=== PATIENT | female | born 1990 | race Native Hawaiian/Other Pacific Islander ===

== ENCOUNTER 2016-10-13 21:20 | Emergency (ER) | payer SELFPAY ==
[2016-10-13 21:51] LABS: Basophils % (Auto) 0.5 % (0.0-1.8); Eosinophils % (Auto) 1.5 % (0.0-4.3); Hematocrit 35.3 % (30.3-42.9); Hemoglobin 12.2 gm/dl (10.1-14.3); Mean Corpuscular HGB Conc 35 % (30-34); Mean Corpuscular Hemoglobin 30 pg (28-32); Mean Corpuscular Volume 88 fl (79-97); Platelet Count 271 K/mm3 (140-440); Red Blood Count 4.03 M/mm3 (3.65-5.03); Red Cell Distribution Width 12.6 % (13.2-15.2); White Blood Count 8.3 K/mm3 (4.5-11.0)
[2016-10-13 22:09] LABS: Alanine Aminotransferase 7 units/L (7-56); Albumin 4.2 g/dL (3.9-5); Albumin/Globulin Ratio 1.4 %; Alkaline Phosphatase 82 units/L (35-129); Anion Gap 16 mmol/L; Blood Urea Nitrogen 13 mg/dL (7-17); Calcium 9.1 mg/dL (8.4-10.2); Carbon Dioxide 26 mmol/L (22-30); Chloride 101.8 mmol/L (98-107); Glucose 96 mg/dL (65-100); Lipase 25 units/L (13-60); Potassium 3.4 mmol/L (3.6-5.0); Sodium 140 mmol/L (137-145); Total Protein 7.3 g/dL (6.3-8.2)
[2016-10-13 22:32] LABS: Bilirubin,Urine NEG (Negative); Blood,Urine MOD (Negative); Ketones,Urine NEG (Negative); Leukocyte Esterase,Urine LG (Negative); Mucus,Urine FEW /HPF; Nitrite,Urine NEG (Negative); Protein,Urine <15 mg/dL mg/dL (Negative); Urobilinogen,Urine < 2.0 mg/dL (<2.0)
--- NOTE | 2016-10-14 09:26 | Emergency Department Report ---
ED Abdominal Pain HPI - General Chief Complaint: Abdominal Pain Stated Complaint: ABD PAIN/LOWER BACK PAIN Source: patient Mode of arrival: Ambulatory Limitations: No Limitations - History of Present Illness Initial Comments: 26 year old female presents to ED with lower bilateral abdominal pain and dysuria x2 days. patient is stable, neurologically intact and in no acute distress. patient denies N/V/D and fevers. patient states LMP was 2016. Complaint: abdominal pain -: Gradual Location: diffuse Radiation: suprapubic, L flank, R flank Migration to: suprapubic Severity: mild Severity scale (0 -10): 10 Quality: sharp Consistency: constant Improves With: nothing Worsens With: nothing Associated Symptoms: dysuria. denies: nausea, vomiting, diarrhea, fever, constipation, syncope - Related Data Previous Rx's Medication Instructions Recorded Last Taken Type Nitrofurantoin [place]/M-Cryst 100 mg PO Q12HR #14 capsule 10/14/16 Unknown Rx [Macrobid CAP] Phenazopyridine [Pyridium] 100 mg PO TID #9 tab 10/14/16 Unknown Rx metroNIDAZOLE [Flagyl] 500 mg PO Q8HR #21 tablet 10/14/16 Unknown Rx Allergies Allergy/AdvReac Type Severity Reaction Status Date / Time No Known Allergies Allergy Verified 10/13/16 21:28 ED Review of Systems ROS: Stated complaint: ABD PAIN/LOWER BACK PAIN Other details as noted in HPI Constitutional: denies: chills, fever Eyes: denies: eye pain, eye discharge, vision change ENT: denies: ear pain, throat pain Respiratory: denies: cough, shortness of breath, wheezing Cardiovascular: denies: chest pain, palpitations Endocrine: no symptoms reported Gastrointestinal: abdominal pain. denies: nausea, diarrhea Genitourinary: dysuria. denies: urgency, discharge Musculoskeletal: denies: back pain, joint swelling, arthralgia Skin: denies: rash, lesions Neurological: denies: headache, weakness, paresthesias Psychiatric: denies: anxiety, depression Hematological/Lymphatic: denies: easy bleeding, easy bruising ED Past Medical Hx - Past Medical History Previous Medical History?: No - Surgical History Past Surgical History?: No - Social History Smoking Status: Never Smoker Substance Use Type: None - Medications Home Medications: Home Medications Medication Instructions Recorded Confirmed Last Taken Type Nitrofurantoin [place]/M-Cryst 100 mg PO Q12HR #14 capsule 10/14/16 Unknown Rx [Macrobid CAP] Phenazopyridine [Pyridium] 100 mg PO TID #9 tab 10/14/16 Unknown Rx metroNIDAZOLE [Flagyl] 500 mg PO Q8HR #21 tablet 10/14/16 Unknown Rx ED Physical Exam - General Limitations: No Limitations General appearance: alert, in no apparent distress - Head Head exam: Present: atraumatic, normocephalic - Eye Eye exam: Present: normal appearance, EOMI - ENT ENT exam: Present: mucous membranes moist - Neck Neck exam: Present: normal inspection - Respiratory Respiratory exam: Present: normal lung sounds bilaterally. Absent: respiratory distress - Cardiovascular Cardiovascular Exam: Present: regular rate, normal rhythm. Absent: systolic murmur, diastolic murmur, rubs, gallop - GI/Abdominal GI/Abdominal exam: Present: soft, tenderness (bilateral lower quadrants), normal bowel sounds - External exam: Present: normal external exam Speculum exam: Present: vaginal discharge (white). Absent: vaginal bleeding Bi-manual exam: Present: normal bi-manual exam. Absent: cervical motion tendernes, adnexal mass - Extremities Exam Extremities exam: Present: normal inspection, full ROM - Back Exam Back exam: Present: normal inspection, full ROM - Neurological Exam Neurological exam: Present: alert, oriented X3, normal gait - Psychiatric Psychiatric exam: Present: normal affect, normal mood - Skin Skin exam: Present: warm, dry, intact, normal color. Absent: rash ED Course Vital Signs 10/13/16 10/14/16 21:28 02:55 Temperature 97.8 F 98 F Pulse Rate 77 78 Respiratory 22 18 Rate Blood Pressure 120/79 Blood Pressure 123/81 [Right] O2 Sat by Pulse 100 95 Oximetry ED Medical Decision Making - Lab Data Result diagrams: 10/13/16 21:35 10/13/16 21:35 Lab Results 10/13/16 10/13/16 10/13/16 Range/Units 21:35 21:35 22:00 WBC 8.3 (4.5-11.0) K/mm3 RBC 4.03 (3.65-5.03) M/mm3 Hgb 12.2 (10.1-14.3) gm/dl Hct 35.3 (30.3-42.9) % MCV 88 (79-97) fl MCH 30 (28-32) pg MCHC 35 H (30-34) % RDW 12.6 L (13.2-15.2) % Plt Count 271 (140-440) K/mm3 Lymph % (Auto) 37.1 H (13.4-35.0) % [place] % (Auto) 5.7 (0.0-7.3) % Eos % (Auto) 1.5 (0.0-4.3) % Baso % (Auto) 0.5 (0.0-1.8) % Lymph # 3.1 (1.2-5.4) K/mm3 [place] # 0.5 (0.0-0.8) K/mm3 Eos # 0.1 (0.0-0.4) K/mm3 Baso # 0.0 (0.0-0.1) K/mm3 Seg Neutrophils % 55.2 (40.0-70.0) % Seg Neutrophils # 4.6 (1.8-7.7) K/mm3 Sodium 140 (137-145) mmol/L Potassium 3.4 L (3.6-5.0) mmol/L Chloride 101.8 (98-107) mmol/L Carbon Dioxide 26 (22-30) mmol/L Anion Gap 16 mmol/L BUN 13 (7-17) mg/dL Creatinine 0.5 L (0.7-1.2) mg/dL Estimated GFR > 60 ml/min BUN/Creatinine Ratio 26.00 % Glucose 96 (65-100) mg/dL Calcium 9.1 (8.4-10.2) mg/dL Total Bilirubin 0.20 (0.1-1.2) mg/dL AST 11 (5-40) units/L ALT 7 (7-56) units/L Alkaline Phosphatase 82 (35-129) units/L Total Protein 7.3 (6.3-8.2) g/dL Albumin 4.2 (3.9-5) g/dL Albumin/Globulin Ratio 1.4 % Lipase 25 (13-60) units/L Urine Color Yellow (Yellow) Urine Turbidity Clear (Clear) Urine pH 7.0 (5.0-7.0) Ur Specific [place] 1.013 (1.003-1.030) Urine Protein <15 mg/dl (Negative) mg/dL Urine Glucose (UA) Neg (Negative) mg/dL Urine Ketones Neg (Negative) mg/dL Urine Blood Mod (Negative) Urine Nitrite Neg (Negative) Ur Reducing Substances Not Reportable Urine Bilirubin Neg (Negative) Urine Ictotest Not Reportable Urine Urobilinogen < 2.0 (<2.0) mg/dL Ur Leukocyte Esterase Lg (Negative) Urine WBC (Auto) 36.0 H (0.0-6.0) /HPF Urine RBC (Auto) 4.0 (0.0-6.0) /HPF U Epithel Cells (Auto) 1.0 (0-13.0) /HPF Urine Mucus Few /HPF - Medical Decision Making 26 year old female presents to ED with bilateral lower abd pain and dysuria. patient's urine positive for UTI and wet prep positive for clue cells. patient is stable, neurologically intact and in no acute distress. patient will be treated with appropriate prescriptions and discharged. Lab has called and spoken with EVER Wallace and stated that urine is negative. RN has documented in RN notes. Critical care attestation.: If time is entered above; I have spent that time in minutes in the direct care of this critically ill patient, excluding procedure time. ED Disposition Clinical Impression: UTI (urinary tract infection) Qualifiers: Urinary tract infection type: acute cystitis Hematuria presence: without hematuria Qualified Code(s): N30.00 - Acute cystitis without hematuria Disposition: DC-01 TO HOME OR SELFCARE Is pt being admited?: No Does the pt Need Aspirin: No Condition: Stable Instructions: Abdominal Pain (ED) Prescriptions: metroNIDAZOLE [Flagyl] 500 mg PO Q8HR #21 tablet Nitrofurantoin [place]/M-Cryst [Macrobid CAP] 100 mg PO Q12HR #14 capsule Phenazopyridine [Pyridium] 100 mg PO TID #9 tab Referrals: PRIMARY CARE, [Primary Care Provider] - 3-5 Days Forms: Work/School Release Form(ED)
[2016-10-14] MEDS ORDERED: TORADOL IM ONE (09:42)
[2016-10-14] MEDS ORDERED: MOTRIN PO ONE ×2 (10:34→10:35)
[2016-10-14 10:42] VITALS: BP 115/78
== END 2016-10-14 10:42 | disposition home or self-care (01) ==
LOC: ED 21:20
DX: N30.00 Acute cystitis without hematuria (principal)
CPT/HCPCS: 36415; 80053; 81001; 81025; 83690; 85025; 87210; 87591; 99284; J1885

== ENCOUNTER 2020-08-01 08:46 | Outpatient (CLI) | payer MEDICAID, OTHER ==
[2020-08-01] MEDS ORDERED: LACTATED RINGERS 500 ML IV ONE (09:30)
[2020-08-01 09:39] VITALS: BP 135/73
--- NOTE | 2020-08-01 11:28 | Ultrasound Report ---
ULTRASOUND OBSTETRIC LIMITED ULTRASOUND BIOPHYSICAL PROFILE INDICATION / CLINICAL INFORMATION: wellbeing. COMPARISON: None available. FINDINGS: BREATHING MOVEMENT = 2 GROSS BODY MOVEMENT = 2 TONE = 2 QUALITATIVE AMNIOTIC FLUID VOLUME = 2 TOTAL BIOPHYSICAL SCORE = 8/8 HEART RATE (beats per minute): 146 AMNIOTIC FLUID INDEX: Subjectively normal PRESENTATION: Breech. ADDITIONAL FINDINGS: None. IMPRESSION: 1. Biophysical Score = 8/8 2. Subjectively normal amniotic fluid index Signer Name: Jenaro Shea MD Signed: 08/01/2020 11:23 AM Workstation Name: [email or web address]
== END 2020-08-01 11:46 | disposition home or self-care (01) ==
LOC: TRG 08:46 → APU 08:47 → TRG 11:46
PROVIDERS: ATTEND Obstetrics & Gynecology
DX: O36.8120 Decreased fetal movements, second trimester, not applicable or unspecified (principal); Z3A.22 22 weeks gestation of pregnancy
CPT/HCPCS: 76815; 76819

== ENCOUNTER 2020-11-12 09:10 | Inpatient (IN) | payer MEDICAID ==
[2020-11-12] MEDS ORDERED: BICITRA ORAL LIQD 30ML PO NR (10:19)
[2020-11-12] MEDS ORDERED: METOCLOPRAMIDE 10 MG/2 ML INJ IV NR (10:19)
[2020-11-12] MEDS ORDERED: FAMOTIDINE 20 MG/2 ML INJ IV NR (10:19)
[2020-11-12] MEDS: LACTATED RINGERS 1,000 ML IV SCH ×4 (10:57→19:20)
[2020-11-12] MEDS ORDERED: OXYTOCIN DRIP 30 UNITS/500 ML BAG IV SCH ×2 (11:00→16:00)
[2020-11-12] MEDS ORDERED: ceFAZolin/Water 2 GM/20 ML 2 GM/20 ML SYRINGE IV NR (11:00)
--- NOTE | 2020-11-12 12:26 | History and Physical Report ---
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 PNC reviewed O pos, Ab neg H/H 13.7/41.1 Pap NILM, Rubella Immune, VRDL NR Ucx neg, HBsAG NR, HIV NR GCCT neg Varicella immune MSAFP neg 1hr GTT 168 3hr GTT 94, 144, 138, 123 GBS neg Past History Past Medical History: no pertinent history Past Surgical History: no surgical history ADOBE BLOCK [employer]KER History: herpes Family/Genetic History: diabetes, heart disease, hypertension Social history: no significant social history - Obstetrical History Expected Date of Delivery: 11/30/20 Actual Gestation: 37 Week(s) 3 Day(s) : 3 Para: 1 Number of Pregnancies: 1 Number of Living Children: 1 Medications and Allergies Allergies Allergy/AdvReac Type Severity Reaction Status Date / Time Latex, Natural Rubber Allergy Severe Swelling Verified 08/01/20 09:28 Home Medications Medication Instructions Recorded Confirmed Last Taken Type Cholecalciferol Vit D3 1 tab PO DAILY 01/07/20 01/08/20 01/07/20 12:00 History Vit-Fe Fumar-FA [ 1 tab PO QDAY 01/07/20 01/08/20 01/06/20 20:00 History Vitamin] Ibuprofen [Motrin 600 MG tab] 600 mg PO Q6H #30 tablet 01/10/20 Unknown Rx Active Meds: Active Medications Citric Acid/Sodium Citrate (Bicitra Oral Liqd 30ml) 30 ml PO ONCE NR Stop: 11/12/20 13:00 Famotidine (Famotidine 20 Mg/2 Ml Inj) 20 mg IV ONCE NR Stop: 11/12/20 13:00 Lactated Ringer's (Lactated Ringers) 1,000 mls @ 2,250 mls/hr IV PREOP ARACELI Stop: 11/13/20 10:57 Last Admin: 11/12/20 11:28 Dose: 2,250 mls/hr Documented by: Oxytocin/Sodium Chloride (Pitocin/Ns 30 Unit/500ml) 30 units in 500 mls @ 0 mls/hr IV TITR ARACELI; Protocol Cefazolin Sodium (Ancef/Sterile Water 2 Gm/20 Ml) 2 gm in 20 mls @ 80 mls/hr IV PREOP NR; Protocol Stop: 11/12/20 20:00 Metoclopramide HCl (Metoclopramide 10 Mg/2 Ml Inj) 10 mg IV ONCE NR Stop: 11/12/20 13:00 Review of Systems All systems: negative (expect HPI) - Vital Signs Vital signs: Vital Signs Temp 98.8 F 11/12/20 00:05 Temp Pulse Resp BP Pulse Ox 98.1 F 106 H 22 128/83 100 11/12/20 11:42 11/12/20 12:06 11/12/20 11:42 11/12/20 11:42 11/12/20 12:06 - Physical Exam Abdomen: Positive: normal appearance, normal bowel sounds Extremities: Positive: normal - Obstetrical FHR: category 1 Uterine Contraction Monitor Mode: External Uterine Contraction Pattern: Absent Results All other labs normal. Assessment and Plan - Patient Problems (1) Breech presentation Current Visit: Yes Status: Acute Qualifiers: Fetus number: single or unspecified fetus Qualified Code(s): O32.1XX0 - Maternal care for breech presentation, not applicable or unspecified Plan to address problem: --To OR for primary c/s for breech presentation with fetus with severe IUGR at term --Consented in the chart --Questions solicited and answered
--- NOTE | 2020-11-12 13:00 | Anesthesia Day of Surgery ---
Anesthesia Day of Surgery - Day of Surgery Patient Examined: Yes Patient H&P Reviewed: Yes Patient is NPO: Yes Beta Blockers: No Cardiac Clearance: No Pulmonary Clearance: No Eric's Test: N/A
--- NOTE | 2020-11-12 13:02 | Anesthesia Consultation ---
Anesthesia Consult and Med Hx Date of service: 11/12/20 - Airway Anesthetic Teeth Evaluation: Poor ROM Head & Neck: Adequate Mental/Hyoid Distance: Adequate Mallampati Class: Class II Intubation Access Assessment: Probably Good - Pulmonary Exam CTA: Yes - Cardiac Exam Cardiac Exam: RRR - Pre-Operative Health Status ASA Pre-Surgery Classification: ASA2 Proposed Anesthetic Plan: Spinal - Pulmonary Hx Smoking: No Hx Asthma: No Hx Respiratory Symptoms: No SOB: No COPD: No Home Oxygen Therapy: No Hx Pneumonia: No Hx Sleep Apnea: No - Cardiovascular System Hx Hypertension: No Hx Coronary Artery Disease: No Hx Heart Attack/AMI: No Hx Angina: No Hx Percutaneous Transluminal Coronary Angioplasty (PTCA): No Hx Cardia Arrhythmia: No Hx Pacemaker: No Hx Internal Defibrillator: No Hx Valvular Heart Disease: No Hx Heart Murmur: No Hx Peripheral Vascular Disease: No - Central Nervous System Hx Neuromuscular Disorder: Yes (headaches) Hx Seizures: No CVA: No Hx Back Pain: Yes Hx Psychiatric Problems: No - Gastrointestinal Hx Ulcer: No Hx Gastroesophageal Reflux Disease: No - Endocrine Hx Renal Disease: No Hx End Stage Renal Disease: No Hx Cirrhosis: No Hx Liver Disease: No Hx Insulin Dependent Diabetes: No Hx Non-Insulin Dependent Diabetes: No Hx Thyroid Disease: No Hx Hypothyroidism: No Hx Hyperthyroidism: No - Hematic Hx Anemia: No Hx Sickle Cell Disease: No - Other Systems Hx Alcohol Use: No Hx Substance Use: No Hx Cancer: No Hx Obesity: Yes
[2020-11-12] MEDS ORDERED: HYDROmorphone 1 MG/1 ML INJ IV PRN ×2 (13:07)
[2020-11-12] MEDS ORDERED: NALOXONE 0.4 MG/1 ML INJ IV PRN ×2 (13:07→15:48)
[2020-11-12] MEDS ORDERED: ONDANSETRON 4 MG/2 ML INJ ONE (13:14)
[2020-11-12 13:28] LABS: Basophils % (Auto) 0.3 % (0.0-1.8); Eosinophils # (Auto) 0.1 K/mm3 (0.0-0.4); Eosinophils % (Auto) 0.9 % (0.0-4.3); Hematocrit 35.9 % (30.3-42.9); Hemoglobin 12.6 gm/dl (10.1-14.3); Lymphocytes # (Auto) 2.2 K/mm3 (1.2-5.4); Lymphocytes % (Auto) 22.7 % (13.4-35.0); Mean Corpuscular HGB Conc 35 % (30-34); Mean Corpuscular Volume 91 fl (79-97); Monocytes # (Auto) 0.6 K/mm3 (0.0-0.8); Monocytes % (Auto) 6.4 % (0.0-7.3); Platelet Count 226 K/mm3 (140-440); Red Blood Count 3.93 M/mm3 (3.65-5.03); Red Cell Distribution Width 14.2 % (13.2-15.2)
[2020-11-12] MEDS ORDERED: ONDANSETRON 4 MG/2 ML INJ IV PRN ×2 (13:30→15:48)
[2020-11-12] MEDS ORDERED: ceFAZolin/STERILE WATER 2 GM/20 ML SYRINGE IV ONE (14:14)
[2020-11-12] MEDS ORDERED: SODIUM CHLORIDE 0.9% IRR 1,500 ML BOTTLE IR ONE (14:32)
[2020-11-12] MEDS ORDERED: WATER FOR IRRIG STERILE 1,500 ML BOTTLE IR ONE (14:32)
[2020-11-12] MEDS ORDERED: ACETAMINOPHEN 325 MG TAB PO PRN (15:48)
[2020-11-12] MEDS ORDERED: oxyCODONE /ACETAMINOPHEN 5-325MG TAB PO PRN (15:48)
[2020-11-12] MEDS ORDERED: PROMETHAZINE 25 MG RECT SUPP PR PRN (15:48)
[2020-11-12] MEDS ORDERED: SENNOSIDES 8.6 MG TAB PO PRN (15:48)
[2020-11-12] MEDS ORDERED: WITCH HAZEL/ GLYCERIN PAD TP PRN (15:48)
[2020-11-12] MEDS ORDERED: HYDROCORTISONE 25 MG RECTAL SUPP PR PRN (15:48)
[2020-11-12] MEDS ORDERED: LANOLIN/ZINC/DIMETHICONE (LANSINOH) 7 GM TP PRN (15:48)
[2020-11-12] MEDS ORDERED: BUPIVACAINE/PF (0.25%) 2.5 MG/ML 30 ML VIAL INFILTRATI ONE (15:51)
--- NOTE | 2020-11-12 15:52 | Procedure Note ---
OB Delivery Note - Delivery Date of Delivery: 11/12/20 Surgeon: SACHIN GEE JR Estimated blood loss: other (QBL 753 cc) - Section Preop diagnosis: breech Postop diagnosis: same section procedure: section, primary low transverse Disposition: PACU Complications: none Narrative: Indication: 35-year-old G3, at 37 weeks and 3 days complicated by history of IUFD at 28 weeks, and severe intrauterine growth restriction presenting for primary for breech presentation. Findings: Normal uterus, tubes and ovaries. Clear fluid. No nuchal cord. Delivery of male at 1447 Weight 2340g Height 19 in APGARS 7/9 EBL 753cc IVF 1100 cc UOP 100 cc Procedure: Patient was taken to the operating room prepped and draped in the usual sterile fashion. Pfannenstiel skin incision was made and carried down to the underlying fascia. Fascia was incised and the incision was distended bilaterally. Rectus fascia was dissected off the rectus muscle superiorly and inferiorly. Peritoneum was identified and entered. Peritoneal incision extended superiorly and inferiorly. The bladder was visualized. The bladder blade was placed. Uterine hysterotomy incision was made and extended bilaterally. The baby was delivered in a breech fashion starting with the left leg, then the right leg, then delivering the trunk, then the left shoulder followed by the right shoulder, then the head. Baby was bulb suction at delivery. The cord was cut and clamped and handed off to the team. The placenta was delivered spontaneously. The uterus was exteriorized and cleared of all clots and debris. Uterine incision was closed with a 0 Vicryl in a running locked fashion. Good hemostasis was noted after 2 sets of [id number] sutures applied to the uterine incision. Hemoblast was applied to the uterine incisional base to provide hemostasis. The urine was noted to be clear. Uterus, tubes, and ovaries were returned to the abdominal cavity. Bilateral gutters were cleared and the abdomen and pelvis were irrigated. Good hemostasis noted. The rectus muscle was reapproximated with 2-0 Vicryl. Attention was directed towards the rectus fascia which was reapproximated with 0 PDS in a running fashion. The subcutaneous tissue was irrigated and reapproximated with 2-0 Vicryl in a running fashion. Skin was closed with a 4-0 Vicryl in a subcuticular fashion. The procedure was completed and the patient tolerated the procedure well. All instruments and lap counts were correct x2. - Infant A at 1 minute: 7 at 5 minutes: 9 Infant Gender: Male
[2020-11-12] MEDS ORDERED: HYDROmorphone 1 MG/1 ML INJ ONE (15:54)
--- NOTE | 2020-11-12 18:14 | Progress Note ---
Spinal Anesthesia Block - Spinal Anesthesia Block Start Time: 14:00 Stop Time: 14:10 Performed by:: MARYSE VERAS Procedure: Patient IDed, H&P reviewed, all questions and concerns were answered, and consent was signed. Timeout was performed at bedside. Patient in sitting position. Sterile prep and drape was performed. [3] ml of 1% lidocaine skin wheal at L[3]- L [4]. Needle introducer advanced. 25 gauge spinal needle advanced. Clear, free flowing CSF. negative blood, negative paresthesia. Spinal dose given. All needles removed. Patient tolerated procedure.
--- NOTE | 2020-11-12 18:16 | Progress Note ---
Labor Epidural - Labor Epidural Start Time: 16:13 Stop Time: 16:15 Performed by:: MARYSE VERAS Procedure: Patient consented for TAP block for post surgical pain management. Patient identified, monitors placed, and time out performed. TAP identified bilaterally via ultrasound. Skin prepped bilaterally with [chlorhexidine] and [22g stimuplex] needle advanced to the TAP. [Marcaine 0.25% 30ml] injected under ultrasound guidance on the [left] side. [Marcaine 0.25% 30ml] injected under ultrasound guidance on the [right] side. Negative aspiration every 5mL, No change in heart rate or rhythm. Patient tolerated the procedure well. No anabelle arent complications seen.
[2020-11-12] MEDS: KETOROLAC 30 MG/1 ML INJ IV SCH (20:01)
[2020-11-12] MEDS: MORPHINE 4 MG/1 ML INJ IV PRN (22:56)
[2020-11-13] MEDS: KETOROLAC 30 MG/1 ML INJ IV SCH ×2 (02:28→12:06)
[2020-11-13] MEDS: LACTATED RINGERS 1,000 ML IV SCH (02:28)
[2020-11-13] MEDS: SIMETHICONE 80 MG CHEW TAB PO PRN ×2 (02:34→09:35)
[2020-11-13 05:37] LABS: Hematocrit 31.1 % (30.3-42.9); Hemoglobin 10.9 gm/dl (10.1-14.3)
[2020-11-13] MEDS: MAGNESIUM HYDROXIDE (MOM) ORAL LIQD UDC PO PRN (07:56)
[2020-11-13] MEDS: MORPHINE 4 MG/1 ML INJ IV PRN (07:57)
[2020-11-13] MEDS ORDERED: oxyCODONE /ACETAMINOPHEN 5-325MG TAB PO PRN (09:21)
[2020-11-13] MEDS: oxyCODONE /ACETAMINOPHEN 5-325MG TAB PO PRN ×2 (09:35→18:01)
--- NOTE | 2020-11-13 10:15 | Progress Note ---
Assessment and Plan A: S/P primary LTCS Gas pains P: Continue routine pp care Mylicon for gas Encourage ambulation D/C home tomm if stable Subjective - Subjective Date of service: 11/13/20 Principal diagnosis: s/p primary ltcs Patient reports: voiding normally, pain poorly controlled, ambulating normally, other (c/o gas) [place]: doing well, bottle feeding Objective - Vital Signs Latest vital signs: Vital Signs Temp Pulse Resp BP BP Pulse Ox 11/13/20 08:05 97.9 F 105 H 20 127/81 11/12/20 20:10 98.0 F 92 H 18 127/72 96 11/12/20 19:04 99.8 F H 98 H 16 145/88 99 11/12/20 17:20 96 H 16 124/78 96 11/12/20 17:07 89 16 125/68 97 11/12/20 16:52 87 14 123/72 96 11/12/20 16:37 88 15 121/73 98 11/12/20 16:22 84 13 122/75 98 11/12/20 16:07 97.7 F 89 14 122/72 97 11/12/20 13:45 98.1 F 96 H 20 118/62 96 11/12/20 12:06 106 H 100 11/12/20 12:01 101 H 99 11/12/20 11:56 101 H 100 11/12/20 11:51 99 H 100 11/12/20 11:46 110 H 99 11/12/20 11:42 98.1 F 100 H 22 128/83 128/83 97 11/12/20 11:41 99 H 100 11/12/20 11:39 98.1 F 91 H 22 129/82 98 11/12/20 11:36 99 H 100 11/12/20 11:31 100 H 100 11/12/20 11:26 99 H 99 11/12/20 11:21 98 H 100 11/12/20 11:11 96 H 89 11/12/20 11:08 101 H 100 11/12/20 11:03 100 H 100 11/12/20 10:58 98 H 100 11/12/20 10:53 91 H 98 11/12/20 10:48 93 H 98 11/12/20 10:43 90 100 11/12/20 10:38 97 H 100 11/12/20 10:33 98 H 99 11/12/20 10:28 97 H 99 11/12/20 10:23 94 H 100 11/12/20 10:18 93 H 98 11/12/20 10:13 97 H 98 Intake and Output 11/12/20 11/13/20 11/13/20 22:59 06:59 14:59 Intake Total 1125 320 Output Total 642 594 9305 Balance 972 -400 -616 Intake: IV 1125 Lactated Ringers 1,000 ml 1000 @ 2250 mls/hr IV PREOP COUNT INCLUDES THE [facility] Rx#:[id number] Left Hand 125 Oral 320 Output: Urine 263 076 8362 Indwelling Catheter 400 Uretheral ([place]) 50 Void 1000 Other: Total, Intake Amount 320 Total, Output Amount 400 400 # Voids Void 1 - Exam Breasts: Present: normal Abdomen: Present: normal appearance, soft, normal bowel sounds Vulva: both: normal Uterus: Present: normal, firm Extremities: Present: normal Incision: Present: normal, dry, intact - Labs Labs: Abnormal lab results 11/12/20 Range/Units 10:45 MCHC 35 H (30-34) %
--- NOTE | 2020-11-13 14:01 | Ultrasound Report ---
ULTRASOUND OBSTETRIC LIMITED INDICATION / CLINICAL INFORMATION: presentation/position. Clinical Gestational Age (GA) in weeks, days: 37 weeks 3 days TECHNIQUE: Transabdominal. COMPARISON: 08/01/2020 FINDINGS: HEART RATE (beats per minute): 149 AMNIOTIC FLUID INDEX (cm) = not measured (normal = 7-24 cm) PRESENTATION: Breech. ADDITIONAL FINDINGS: None. IMPRESSION: 1. Breech presentation Signer Name: Flavio Patel DO Signed: 11/13/2020 1:56 PM Workstation Name: Recommend
--- NOTE | 2020-11-13 14:53 | Post Anesthesia Evaluation ---
- Post Anesthesia Evaluation Patient Participated: Yes Airway Patent: Yes Stable Respiratory Function: Yes Nausea/Vomiting: No Temp > 96.8F: Yes Pain Manageable: Yes Adequeate Hydration: Yes Anesthesia Complications: No Block Receding Appropriately: Yes Patient on Ventilator: No
[2020-11-13] MEDS: IBUPROFEN 800 MG TAB PO PRN (19:52)
[2020-11-14] MEDS: SIMETHICONE 80 MG CHEW TAB PO PRN (00:31)
[2020-11-14] MEDS: oxyCODONE /ACETAMINOPHEN 5-325MG TAB PO PRN ×3 (00:31→21:58)
[2020-11-14] MEDS: IBUPROFEN 800 MG TAB PO PRN ×2 (05:30→14:40)
--- NOTE | 2020-11-14 11:59 | Consultation ---
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 Harish Morales is a 30 year old female who was admitted for C/S due to breech presentation. In my interview with the patient, she reports no prior psychiatric history and is naive to psychotropic medications. The patient reports losing a child in 12/2019; she reports being worried stating " I was grieving and also ." The patient states she was worried about having possible complication with this . She denies being depressed or having excessive worries. She denies any current suicidal/homicidal thoughts and denies hallucinations. PAST PSYCHIATRIC HISTORY Diagnoses: Denies Suicide attempts or Self-harm behavior: Denies Prior psychiatric hospitalizations: Denies Substance Abuse history: Denies Previous psychiatric medications tried: Denies Outpatient treatment: Denies PAST MEDICAL HISTORY: None reported Family Psychiatric History: None reported or documented SOCIAL HISTORY Marital Status: Living Arrangements: with family Employment Status: Unknown Access to guns/weapons: Denies Education: 12th grade History of Abuse: Denies Legal History: none reported REVIEW OF SYSTEMS Constitutional: Negative for weight loss ENT: Negative for stridor Respiratory: Negative for cough or hemoptysis All other systems reviewed and are negative MENTAL STATUS EXAMINATION General Appearance and Behavior: Age appropriate, good hygiene, wearing anabelle ropriate clothes, good eye contact Cooperation: Participating/engaged Psychomotor Behavior: Psychomotor normal Mood: "good" Affect and affective range: congruent with stated mood Thought Process: goal oriented Thought Content: Not SI Speech: Normal rate, volume and rhythm Suicidal Ideation: Denies Homicidal Ideation: Denies Delusions: None elicited Impulse Control: Impaired Insight and Judgment: good insight and judgment Memory: Normal Attention: Normal Orientation: Alert, oriented Assessment and Plan Current Visit: Yes Status: Treatment Plan Risks, benefits and alternatives of medications discussed with the patient, questions answered and consent obtained from patient. PSYCHOTHERAPY: Supportive psychotherapy provided MEDICAL: Per primary team DELIRIUM PRECAUTIONS: Please re-orient patient frequently, keep lights on during the day, and minimize benzodiazepines and opiates as these medications could worsen patient's confusion. FACILITIES PLANT ENGINEER: DISPOSITION: Do Not Recommend acute inpatient psychiatric hospitalization at this time. Case discussed with Dr. Parrish who agrees with current disposition FOLLOW-UP: Will sign off Thank you for the consult. Please contact with any questions and/or concerns. Medications and Allergies Allergies Allergy/AdvReac Type Severity Reaction Status Date / Time Latex, Natural Rubber Allergy Severe Swelling Verified 11/13/20 23:27 Home Medications Medication Instructions Recorded Confirmed Last Taken Type Cholecalciferol Vit D3 1 tab PO DAILY 01/07/20 01/08/20 01/07/20 12:00 History Vit-Fe Fumar-FA [ 1 tab PO QDAY 01/07/20 01/08/20 01/06/20 20:00 History Vitamin] Ibuprofen [Motrin 600 MG tab] 600 mg PO Q6H #30 tablet 01/10/20 Unknown Rx Ibuprofen [Motrin 800 MG tab] 800 mg PO Q6H PRN #30 tablet 11/12/20 Unknown Rx oxyCODONE /ACETAMINOPHEN [Percocet 1 tab PO Q6H PRN #30 tablet 11/12/20 Unknown Rx 5/325 mg] Active Meds: Active Medications Acetaminophen (Acetaminophen 325 Mg Tab) 650 mg PO Q4H PRN PRN Reason: Fever >100.5/HATHAWAY Hydrocortisone Acetate (Hydrocortisone 25 Mg Rectal Supp) 25 mg [place] BID PRN PRN Reason: Hemorrhoids Hydromorphone HCl (Hydromorphone 1 Mg/1 Ml Inj) 0.5 mg IV Q4H PRN PRN Reason: breakthrough pain > 7/10 Last Admin: 11/13/20 02:29 Dose: 0.5 mg Documented by: Oxytocin/Sodium Chloride (Pitocin/Ns 30 Unit/500ml) 30 units in 500 mls @ 0 mls/hr IV TITR ARACELI; Protocol Oxytocin/Sodium Chloride (Pitocin/Ns 30 Unit/500ml) 30 units in 500 mls @ 40 mls/hr IV TITR ARACELI; Protocol Ibuprofen (Ibuprofen 800 Mg Tab) 800 mg PO Q6H PRN PRN Reason: Pain, Moderate (4-6) Last Admin: 11/14/20 05:30 Dose: 800 mg Documented by: Magnesium Hydroxide (Magnesium Hydroxide (Mom) Oral Liqd Udc) 30 ml PO QHS PRN PRN Reason: Constip Unrelieved By Senna Last Admin: 11/13/20 07:56 Dose: 30 ml Documented by: Morphine Sulfate (Morphine 4 Mg/1 Ml Inj) 4 mg IV Q4H PRN PRN Reason: Pain , Severe (7-10) Last Admin: 11/13/20 07:57 Dose: 4 mg Documented by: Multi-Ingredient Ointment (Lanolin/Zinc/Dimethicone (Lansinoh) 7 Gm) 1 applic TP PRN PRN PRN Reason: dryness/cracking Naloxone HCl (Naloxone 0.4 Mg/1 Ml Inj) 0.1 mg IV Q2MIN PRN PRN Reason: Res Rate </= 8 or 02 SAT < 92% Ondansetron HCl (Ondansetron 4 Mg/2 Ml Inj) 4 mg IV Q8H PRN PRN Reason: Nausea And Vomiting Oxycodone/Acetaminophen (Oxycodone /Acetaminophen 5-325mg Tab) 2 tab PO Q6H PRN PRN Reason: Pain, Moderate (4-6) Last Admin: 11/14/20 10:22 Dose: 2 tab Documented by: Promethazine HCl (Promethazine 25 Mg Rect Supp) 25 mg [place] Q6H PRN PRN Reason: N/V IF NPO AND NO IV ACCESS Senna (Sennosides 8.6 Mg Tab) 17.2 mg PO QHS PRN PRN Reason: Constipation Simethicone (Simethicone 80 Mg Chew Tab) 80 mg PO Q6H PRN PRN Reason: Gas pain Last Admin: 11/14/20 00:31 Dose: 80 mg Documented by: Sodium Chloride (Sodium Chloride 0.9% 10 Ml Flush Syringe) 10 ml IV PRN ARACELI Witch Cathy/Glycerin (Witch Cathy/ Glycerin Pad) 1 each TP PRN PRN PRN Reason: Hemorrhoids/cleansing/soothing Mental Status Exam - Vital signs Last Vital Signs Temp 98.0 F 11/14/20 08:34 Pulse 98 H 11/14/20 08:34 Resp 18 11/14/20 08:34 BP 135/82 11/14/20 08:34 Pulse Ox 97 11/14/20 08:34 Results Result Diagrams: 11/13/20 04:27 All other labs normal.
--- NOTE | 2020-11-14 14:32 | Progress Note ---
Assessment and Plan A: day 2 S/P primary LTCS. Anemia. Depression screen abnormal; seen by psych and cleared. P: Supplement with iron. Encouraged ambulation. Anticipate discharge home tomorrow if patient continues to do well. Subjective - Subjective Date of service: 11/14/20 Principal diagnosis: day 2 S/P primary LTCS Patient reports: appetite normal, voiding normally, pain well controlled, flatus, ambulating normally, no dizzy ambulation, no nauseated [place]: doing well Objective - Vital Signs Latest vital signs: Vital Signs Temp Pulse Resp BP BP Pulse Ox 11/14/20 11:58 98.8 F 101 H 18 130/82 97 11/14/20 08:34 98.0 F 98 H 18 135/82 97 11/14/20 00:45 98.3 F 98 H 20 126/78 97 11/13/20 19:52 18 11/13/20 18:00 98 H 100 11/13/20 16:00 98.2 F 94 H 20 131/69 Intake and Output 11/13/20 11/14/20 11/14/20 23:59 07:59 15:59 Intake Total 583 684 8199 Output Total 800 Balance -301 152 4482 Intake: Oral 360 240 735 Intake, Free Water 240 360 Output: Urine 800 Void 800 Other: Total, Intake Amount 360 240 240 Total, Output Amount 800 # Voids Void 1 1 1 # Bowel Movements 1 - Exam Cardiovascular: Present: Regular rate Lungs: Present: Clear to auscultation Abdomen: Present: normal appearance, soft, normal bowel sounds. Absent: distention, tenderness, guarding, rigidity Uterus: Present: normal, firm, fundal height below umbilicus. Absent: bogginess, tenderness Extremities: Absent: tenderness, edema Incision: Present: dry, dressed
[2020-11-14] MEDS ORDERED: FERROUS SULFATE 325 MG TAB PO SCH (15:00)
[2020-11-14] MEDS: MORPHINE 4 MG/1 ML INJ IV PRN (16:53)
[2020-11-15] MEDS: IBUPROFEN 800 MG TAB PO PRN ×2 (00:13→11:09)
--- NOTE | 2020-11-15 06:19 | Event Note ---
Date: 11/15/20 Mild tachycardia noted. CBC, UA, urine C&S ordered.
[2020-11-15] MEDS: oxyCODONE /ACETAMINOPHEN 5-325MG TAB PO PRN ×2 (07:02→15:03)
[2020-11-15 08:04] LABS: Bilirubin,Urine NEG (Negative); Blood,Urine LG (Negative); Color,Urine Yellow (Yellow); Hyaline Casts,Urine 1 /LPF; Mucus,Urine FEW /HPF; Urobilinogen,Urine < 2.0 mg/dL (<2.0)
[2020-11-15 08:08] LABS: RBC,Urine > 182.0 /HPF (0.0-6.0)
[2020-11-15 09:44] LABS: Basophils # (Auto) 0.1 K/mm3 (0.0-0.1); Basophils % (Auto) 0.7 % (0.0-1.8); Eosinophils # (Auto) 0.2 K/mm3 (0.0-0.4); Eosinophils % (Auto) 1.6 % (0.0-4.3); Hematocrit 24.6 % (30.3-42.9); Hemoglobin 8.6 gm/dl (10.1-14.3); Lymphocytes % (Auto) 18.3 % (13.4-35.0); Mean Corpuscular HGB Conc 35 % (30-34); Mean Corpuscular Volume 92 fl (79-97); Monocytes # (Auto) 0.7 K/mm3 (0.0-0.8); Monocytes % (Auto) 6.1 % (0.0-7.3); Platelet Count 232 K/mm3 (140-440); Red Blood Count 2.66 M/mm3 (3.65-5.03); Red Cell Distribution Width 14.3 % (13.2-15.2)
[2020-11-15] MEDS: MAGNESIUM HYDROXIDE (MOM) ORAL LIQD UDC PO PRN (11:19)
--- NOTE | 2020-11-15 14:22 | Discharge Summary ---
Providers - Providers Date of Admission: 11/12/20 09:10 Date of discharge: 11/15/20 Attending physician: SACHIN GEE JR, MD Primary care physician: SACHIN GEE JR, MD Hospitalization Reason for admission: section Delivery: Procedure: section, primary low transverse Episiotomy: none Laceration: none Incision: normal, intact Other procedures: none complications: none Discharge diagnosis: IUP at term delivered [place] baby: male Hospital course: 30-year-old -1-0-1 at 37 weeks and 3 days (ABDULAZIZ 11/30/20) complicated by PIH, abnormal 1 hour GTT with normal 3hr GGT, closely spaced pregnancies, 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 Patient is meeting postoperative goals by postop day 3 and discharged in good condition. in the NICU on discharge for feeding difficulty likely secondary to known IUGR and not discharged with mother. Condition at discharge: Good Disposition: DC-01 TO HOME OR SELFCARE - Discharge Diagnoses (1) Breech presentation Status: Acute Qualifiers: Fetus number: single or unspecified fetus Qualified Code(s): O32.1XX0 - Maternal care for breech presentation, not applicable or unspecified Plan - Discharge Medications Prescriptions: Ibuprofen [Motrin 800 MG tab] 800 mg PO Q6H PRN #30 tablet PRN Reason: Pain, Moderate (4-6) oxyCODONE /ACETAMINOPHEN [Percocet 5/325 mg] 1 tab PO Q6H PRN #30 tablet PRN Reason: Pain, Moderate (4-6) - Provider Discharge Summary Activity: no sex for 6 weeks, no heavy lifting 4 weeks, no strenuous exercise Diet: routine Instructions: routine Additional instructions: [] Smoking cessation referral if applicable(refer to patient education folder for contact #) [] Refer to [facility] Booklet Call your doctor immediately for: * Fever > 100.5 * Heavy vaginal bleeding ( >1 pad per hour) * Severe persistent headache * Shortness of breath * Reddened, hot, painful area to leg or breast * Drainage or odor from incision. * Keep incision clean and dry at all times and follow doctor's instructions regarding bathing/showering - Follow up plan Follow up: SACHIN GEE JR, MD [Primary Care Provider] - 14 Days Forms: C Discharge Summary
[2020-11-15 16:04] VITALS: BP 140/84
== END 2020-11-15 16:30 | disposition home or self-care (01) | DRG 765 ==
LOC: APU 09:10 → OB 18:17
PROVIDERS: ADMIT Obstetrics & Gynecology; ATTEND Obstetrics & Gynecology
PROC: 10D00Z1 Extraction of Products of Conception, Low, Open Approach (ICD-10-PCS; principal; 2020-11-12)
DX: O32.1XX0 Maternal care for breech presentation, not applicable or unspecified (principal); O75.3 Other infection during labor; Z37.0 Single live birth; Z3A.37 37 weeks gestation of pregnancy; O36.5930 Maternal care for other known or suspected poor fetal growth, third trimester, not applicable or unspecified; O99.354 Diseases of the nervous system complicating childbirth; G43.909 Migraine, unspecified, not intractable, without status migrainosus; D62 Acute posthemorrhagic anemia; O90.81 Anemia of the puerperium
CPT/HCPCS: 36415; 76815; 81001; 85014; 85018; 85025; 86850; 86900; 86901; 87086; 88307; 96360; 99211; G0378; G0463; J0690; J1170; J1885; J2270; J2405; J2765; J3490; J7120; U0003